=== PATIENT | male | born 1990 | race Caucasian/White ===

== ENCOUNTER 2016-09-23 21:45 | Emergency (ER) | payer OTHER ==
[2016-09-23 21:56] VITALS: BP 109/99; PULSE 80; TEMP 98.1; BMI 18.1
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
[2016-09-23] MEDS ORDERED: KETOROLAC TROMETHAMINE 60 MG/2 ML VIAL IM ONE (22:18)
[2016-09-23] MEDS ORDERED: KETOROLAC TROMETHAMINE 60 MG/2 ML VIAL ONE (22:26)
== END 2016-09-23 22:29 | disposition home or self-care (01) ==
LOC: FER 21:45
PROC: 3E0233Z Introduction of Anti-inflammatory into Muscle, Percutaneous Approach (ICD-10-PCS; principal; 2016-09-23)
DX: S16.1XXA Strain of muscle, fascia and tendon at neck level, initial encounter (principal); S39.012A Strain of muscle, fascia and tendon of lower back, initial encounter; V43.52XA Car driver injured in collision with other type car in traffic accident, initial encounter; Y93.89 Activity, other specified; Y92.410 Unspecified street and highway as the place of occurrence of the external cause; F41.9 Anxiety disorder, unspecified; F90.8 Attention-deficit hyperactivity disorder, other type
CPT/HCPCS: 99281-25

== ENCOUNTER 2019-05-30 13:38 | Inpatient (IN) | payer OTHER ==
[2019-05-30 17:44] VITALS: BMI 20.6
--- NOTE | 2019-05-30 18:01 | HP ---
COWS - Scale Resting Pulse: 1= [place] 81-100 Sweatin= Chills/Flushing Restless Observation: 1= Difficult to Sit Still Pupil Size: 0= Normal to Room Light Bone or Joint Aches: 1= Mild Discomfort Runny Nose/ Eye Tearin= Nasal Congestion GI Upset > 30mins: 2= Nausea/Diarrhea Tremor Observation: 2= Slight Tremor Visible Yawning Observation: 1= 1-2x During Session Anxiety or Irritability: 2=Irritable/Anxious Goose Flesh Skin: 0=Smooth Skin COWS Score: 12 CIWA Score - Admission Criteria OASAS Guidelines: Admission for Medically Managed Detox: Requires at least one of the followin. CIWA greater than 12 2. Seizures within the past 24 hours 3. Delirium tremens within the past 24 hours 4. Hallucinations within the past 24 hours 5. Acute intervention needed for co occurring medical disorder 6. Acute intervention needed for co occurring psychiatric disorder 7. Severe withdrawal that cannot be handled at a lower level of care (continued vomiting, continued diarrhea, abnormal vital signs) requiring intravenous medication and/or fluids 8. Admitting History and Physical - Smoking History Smoking history: Never smoked Have you smoked in the past 12 months: No Aproximately how many cigarettes per day: 0 - Alcohol/Substance Use Hx Alcohol Use: No Admission ROS S - HPI Chief Complaint: "detox from opiates" Allergies/Adverse Reactions: Allergies Allergy/AdvReac Type Severity Reaction Status Date / Time No Known Allergies Allergy Verified 05/30/19 17:38 History of Present Illness: 28 year old male with no significant pmh presents for opiate detox. states that he has been to detox before in [facility] around 1 year ago. Completed rehab there too. Clean for 6 months and then relapsed from stress and depression. For depression, on seroquel and trazodone. No thoughts of hurting himself/others. Would like to do detox and rehab. On probation, would like to get clean to prevent going to snf. Opiate use: "blues" oxydone 30mg, 5 pills per day. Last used this morning (4 pills). Uses every day. 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 Loss EENT: reports: Nose Congestion Respiratory: reports: No Symptoms reported Cardiac: reports: Lightheadedness, Palpitations GI: reports: Constipated, Nausea, Poor Appetite : reports: No Symptoms Reported Musculoskeletal: reports: Back Pain, Joint Pain Integumentary: reports: No Symptoms Reported Neuro: reports: No Symptoms reported Endocrine: reports: No Symptoms Reported Hematology: reports: No Symptoms Reported Psychiatric: reports: Judgement Intact, Mood/Affect Appropiate, Orientated x3, Agitated, Anxious, Depressed Patient History - Patient Surgical History Past Surgical History: No - Smoking Cessation Smoking history: Never smoked Have you smoked in the past 12 months: No Aproximately how many cigarettes per day: 0 Hx Chewing Tobacco Use: No - Substances abused Oxycontin Substance route: Oral Frequency: Daily Amount used: 5 pills of 30mg /day Age of first use: 25 Date of last use: 05/30/19 Admission Physical Exam [facility] - Vital Signs Vital Signs: Vital Signs - 24 hr 05/30/19 17:40 Temperature 97.0 F L Pulse Rate 87 Respiratory 16 Rate Blood Pressure 124/64 - Physical General Appearance: Yes: Mild Distress HEENTM: Yes: Normal ENT Inspection, Normocephalic, Normal Voice Respiratory: Yes: Chest Non-Tender, Lungs Clear, Normal Breath Sounds Neck: Yes: No masses,lesions,Nodules Breast: Yes: Within Normal Limits, No Discharge, No masses Cardiology: Yes: Regular Rhythm, Regular Rate Abdominal: Yes: Normal Bowel Sounds, Non Tender Genitourinary: Yes: Within Normal Limits Back: Yes: Normal Inspection Musculoskeletal: Yes: full range of Motion, Gait Steady Extremities: Yes: Normal Capillary Refill, Normal Inspection, Non-Tender 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
--- NOTE | 2019-05-30 18:17 | PN ---
Teaching Attending Note Name of Resident: Mars Montgomery ATTENDING PHYSICIAN STATEMENT I saw and evaluated the patient. I reviewed the resident's note and discussed the case with the resident. I agree with the resident's findings and plan as documented. SUBJECTIVE: 28 yo with legal issues, here for treatment of opioid use disorder. No h/o other drug use. OBJECTIVE: Vital Signs - 24 hr 05/30/19 17:40 Temperature 97.0 F L Pulse Rate 87 Respiratory 16 Rate Blood Pressure 124/64 ASSESSMENT AND PLAN: Heroin use disorder- detox with methadone
[2019-05-30] MEDS ORDERED: ACETAMINOPHEN 325 MG TABLET (FP) PO PRN ×2 (18:24)
[2019-05-30] MEDS ORDERED: METHADONE HCL 10 MG TABLET (FOR DETOX USE ONLY) PO ONE (18:24)
[2019-05-30] MEDS ORDERED: METHOCARBAMOL 500 MG TABLET PO PRN (18:24)
[2019-05-30] MEDS ORDERED: hydrOXYzine PAMOATE 25 MG CAPSULE (FP) PO PRN (18:24)
[2019-05-30] MEDS ORDERED: MAGNESIUM CITRATE 300 ML BOTTLE PO PRN (18:24)
[2019-05-30] MEDS ORDERED: cloNIDine HCL 0.1 MG TABLET PO PRN (18:24)
[2019-05-30] MEDS ORDERED: MAGNESIUM HYDROX 2400MG/30ML ORAL SUSPENSION 30 ML CUP PO PRN (18:24)
[2019-05-30] MEDS ORDERED: IBUPROFEN 400 MG TABLET (FP) PO PRN (18:24)
[2019-05-30] MEDS ORDERED: MELATONIN 5 MG TABLETS PO PRN (18:24)
[2019-05-30] MEDS ORDERED: MAG HYDROX/AL HYDROX/SIMETH 30 ML UNIT-DOSE CUP PO PRN (18:24)
[2019-05-30] MEDS ORDERED: MENTHOL/PHENOL 1 EACH UD MM PRN (18:24)
[2019-05-30] MEDS ORDERED: BISMUTH SUBSALICYLATE 524 MG/30 ML UD PO PRN (18:24)
[2019-05-30] MEDS ORDERED: NICOTINE POLACRILEX 2 MG GUM BUC PRN (18:27)
[2019-05-30] MEDS: NICOTINE 14 MG/24 HOURS TOPICAL PATCH TD SCH (20:14)
[2019-05-30] MEDS ORDERED: THIAMINE HCL 100 MG TABLET (FP) PO SCH (22:00)
--- NOTE | 2019-05-31 08:30 | CONSULT ---
[facility] Psychiatric Consult - Data Date of interview: 05/31/19 Admission source: Probation Identifying data: Mr Hernandez is a 28 years old single [place] male , father of an 8 years old daughter, unemployed with no source of income, domiciled living with family seeking detox treatment for opioid Substance Abuse History: Reports history of oxycontin use. Refer to addiction counselor's summary for further information Medical History: Unremarkable. Smokes cigarettes 1 ppd Psychiatric History: Reports that his first psychiatric contact was 3 years ago while in rehab treament at [facility]. Claims that he saw a psychiatrist due to experiencing mood swings and depression. He was diagnosed with Bipolar Disorder and started on Seroquel and Trazadone. He continued to receive psychiatric care while at [facility] outpatient program where he was referred after completing [facility]. After 2 months at [facility], he went to longterm where he was continued on Seroquel 200 mg/hs and Trazadone 100 mg/hs. Reports that he was released from longterm 3 months ago and referred for outpatient treatment. Told resume writer that he did not follow up but he had refills of medications and ran out a few or so ago. Denies previous psychiatric hospitaliation or suicidal attempt. At present , denies experiencing psychotic, manic or depressive symptoms, S/H ideations. However, reports feeling anxious and sleping poorly. Requests to resume only Seroquel Physical/Sexual Abuse/Trauma History: Denies history of emotional, physical or sexual abuse as well as DV relationship Additional Comment: Reports history of multiple previous arrests including one felony conviction. Reports being on probation Mental Status Exam - Mental Status Exam Alert and Oriented to: Place, Person Cognitive Function: Fair Patient Appearance: Well Groomed Mood: Anxious Affect: Appropriate Patient Behavior: Cooperative Speech Pattern: Clear Voice Loudness: Normal Thought Process: Intact, Goal Oriented Thought Disorder: Not Present Hallucinations: Denies Suicidal Ideation: Denies Homicidal Ideation: Denies Insight/Judgement: Poor Sleep: Poorly Appetite: Poor Muscle strength/Tone: Normal Gait/Station: Normal Psychiatric Findings - Problem List ([place] 1, 2,3) (1) Mood disorder Current Visit: Yes Status: Chronic (2) Bipolar disorder Current Visit: Yes Status: Ruled-out (3) Substance-induced anxiety disorder Current Visit: Yes Status: Acute (4) Substance-induced sleep disorder Current Visit: Yes Status: Acute (5) Opioid dependence, uncomplicated Current Visit: Yes Status: Acute (6) Nicotine dependence Current Visit: Yes Status: Chronic - Initial Treatment Plan Initial Treatment Plan: 1) Resume seroquel 200 mg po HS. 2) Continue inpatient detoxification
[2019-05-31] MEDS ORDERED: PRENATAL VITAMINS W/ FOLIC ACID TABLET (FP) PO SCH (10:00)
[2019-05-31] MEDS ORDERED: METHADONE (DETOX) 20 MG, METHADONE (DETOX) 5 MG PO ONE (10:00)
[2019-05-31 10:03] LABS: ALBUMIN 3.9 g/dl (3.4-5.0); BILIRUBIN,TOTAL 0.3 mg/dL (0.2-1); BLOOD UREA NITROGEN 16.8 mg/dL (7-18); CALCIUM 8.5 mg/dL (8.5-10.1); CREATININE 0.9 mg/dL (0.55-1.3); POTASSIUM 4.2 mmol/L (3.5-5.1); TOT PROT 6.5 g/dl (6.4-8.2)
[2019-05-31 10:25] LABS: HEMATOCRIT 39.9 % (35.4-49); HEMOGLOBIN 13.1 GM/dL (11.7-16.9); MCH 26.5 pg (25.7-33.7); MEAN CELL VOLUME 80.3 fl (80-96); MEAN PLT VOLUME 9.8 fl (7.5-11.1); PLATELET COUNT 107 K/MM3 (134-434); RBC 4.96 M/mm3 (4.00-5.60); RDW 15.5 % (11.9-15.9); WHITE BLOOD COUNT 4.1 K/mm3 (4.0-10.0)
[2019-05-31] MEDS ORDERED: METHADONE HCL 5 MG TABLET (FOR DETOX USE ONLY) ONE (10:32)
[2019-05-31] MEDS ORDERED: METHADONE HCL 10 MG TABLET (FOR DETOX USE ONLY) ONE (10:32)
[2019-05-31] MEDS: NICOTINE 14 MG/24 HOURS TOPICAL PATCH TD SCH (11:58)
--- NOTE | 2019-05-31 12:38 | PN ---
[facility] COWS - Scale Resting Pulse: 0= [place] 80 or Below Sweatin= Chills/Flushing Restless Observation: 1= Difficult to Sit Still Pupil Size: 0= Normal to Room Light Bone or Joint Aches: 2= Severe Diffuse Aches Runny Nose/ Eye Tearin= Runny Nose/Eyes GI Upset > 30mins: 1= Stomach Cramp Tremor Observation of Outstretched Hands: 2= Slight Tremor Visible Yawning Observation: 2= >3x During Session Anxiety or Irritability: 2=Irritable/Anxious Goose Flesh Skin: 0=Smooth Skin COWS Score: 13 [facility] Progress Note (SOAP) Subjective: sweats shakes nausea body aches interrupted sleep irritable agitation Objective: 05/31/19 12:37 Vital Signs Temperature 96.3 F L 05/31/19 09:20 Pulse Rate 59 L 05/31/19 09:20 Respiratory Rate 18 05/31/19 09:20 Blood Pressure 106/64 05/31/19 09:20 O2 Sat by Pulse Oximetry (%) Laboratory Tests 05/31/19 05/31/19 05/31/19 08:00 08:00 08:00 WBC 4.1 RBC 4.96 Hgb 13.1 Hct 39.9 MCV 80.3 MCH 26.5 MCHC 33.0 RDW 15.5 Plt Count 107 L MPV 9.8 Sodium 142 Potassium 4.2 Chloride 107 Carbon Dioxide 30 Anion Gap 6 L BUN 16.8 Creatinine 0.9 Est GFR (CKD-EPI)AfAm 132.37 Est GFR (CKD-EPI)NonAf 114.21 Random Glucose 87 Calcium 8.5 Total Bilirubin 0.3 AST 6 L ALT 10 L Alkaline Phosphatase 54 Total Protein 6.5 Albumin 3.9 RPR Titer Nonreactive labs noted aaox3 ambulating no acute distress Assessment: 05/31/19 12:38 withdrawals sx Plan: continue detox increase fluids
[2019-05-31 13:28] VITALS: BP 120/79; PULSE 61; TEMP 97.9
--- NOTE | 2019-05-31 13:30 | PN ---
[facility] Progress Note Note: pt walked off the unit, dressed and wanting to leave. Staff was called by security that pt was found lingering and had walked off the unit. Pt was asked why did he leave? what could have been different and pt states he just not ready and wants to go home and wants to smoke a cigarette. Pt is AAOx3, restless and anxious. Pt was told the risk of leaving and possibilities of relapse, seizures, OD and or loss and pt insisted he does not want to be and signed AMA.
--- NOTE | 2019-05-31 13:31 | DS ---
[facility] Detox Discharge Summary Admission Date: 05/30/19 - History Present History: Opioid Dependence - Physical Exam Results Vital Signs: Vital Signs Temperature 97.9 F 05/31/19 13:28 Pulse Rate 61 05/31/19 13:28 Respiratory Rate 18 05/31/19 13:28 Blood Pressure 120/79 05/31/19 13:28 O2 Sat by Pulse Oximetry (%) - Treatment Hospital Course: Rehab Referral Accepted - Medication Discharge Medications: Ambulatory Orders Quetiapine Fumarate [Seroquel -] 200 mg PO HS 05/30/19 traZODone HCL [Desyrel -] 100 mg PO HS 05/30/19 - Diagnosis (1) Opioid dependence, uncomplicated Current Visit: Yes Status: Chronic (2) Substance-induced anxiety disorder Current Visit: Yes Status: Acute (3) Substance-induced sleep disorder Current Visit: Yes Status: Acute (4) Mood disorder Current Visit: Yes Status: Chronic (5) Nicotine dependence Current Visit: Yes Status: Chronic Qualifiers: Nicotine product type: cigarettes Substance use status: uncomplicated Qualified Code(s): F17.210 - Nicotine dependence, cigarettes, uncomplicated (6) Bipolar disorder Current Visit: Yes Status: Ruled-out - AMA Did Patient Leave Against Medical Advice: Yes
[2019-05-31] MEDS ORDERED: QUEtiapine FUMARATE 200 MG TABLET PO SCH (22:00)
[2019-06-01] MEDS ORDERED: METHADONE HCL 10 MG TABLET (FOR DETOX USE ONLY) PO ONE (10:00)
[2019-06-02] MEDS ORDERED: METHADONE (DETOX) 10 MG, METHADONE (DETOX) 5 MG PO ONE (10:00)
[2019-06-03] MEDS ORDERED: METHADONE HCL 10 MG TABLET (FOR DETOX USE ONLY) PO ONE (10:00)
[2019-06-04] MEDS ORDERED: METHADONE HCL 5 MG TABLET (FOR DETOX USE ONLY) PO ONE (06:00)
== END 2019-05-31 13:10 | disposition left against medical advice (07) | DRG 770 ==
LOC: YASAS 13:38 → Y6N 19:25
PROVIDERS: ADMIT Allergy & Immunology; ATTEND Allergy & Immunology
PROC: HZ2ZZZZ Detoxification Services for Substance Abuse Treatment (ICD-10-PCS; principal; 2019-05-30)
DX: F11.23 Opioid dependence with withdrawal (principal); F17.210 Nicotine dependence, cigarettes, uncomplicated; F19.280 Other psychoactive substance dependence with psychoactive substance-induced anxiety disorder; F19.282 Other psychoactive substance dependence with psychoactive substance-induced sleep disorder; F39 Unspecified mood [affective] disorder; F31.9 Bipolar disorder, unspecified
CPT/HCPCS: 36415; 80053; 85027; 86593